=== PATIENT | female | born 1990 | race Caucasian/White ===

== ENCOUNTER 2021-03-02 20:32 | Emergency (ER) | payer OTHER ==
[~2021-03-02] VITALS: Ht 167.6 cm; Wt 70.5 kg
[2021-03-03] MEDS ORDERED: HydrOXYzine PAMOATE 50 MG CAPSULE PO ONE (00:30)
[2021-03-03 00:50] VITALS: BP 141/70
== END 2021-03-03 01:10 | disposition home or self-care (01) ==
LOC: EMS 20:38
DX: F41.9 Anxiety disorder, unspecified (principal); F17.210 Nicotine dependence, cigarettes, uncomplicated
CPT/HCPCS: 99283